=== PATIENT | female | born 1980 | race Hispanic/Latino ===

== ENCOUNTER 2023-10-11 16:21 | Emergency (ER) | payer OTHER ==
[~2023-10-11] VITALS: Ht 149.9 cm; Wt 49.9 kg
[2023-10-11 17:00] VITALS: BP 151/102; PULSE 84; RESP 20
[2023-10-11] MEDS ORDERED: IBUP-2070 PO (19:08)
[2023-10-11] MEDS ORDERED: M-SA237L TP (19:08)
[2023-10-11] MEDS ORDERED: KETOROLAC 30MG VIAL (30MG/ML) IM ONE (19:30)
== END 2023-10-11 19:44 | disposition home or self-care (01) ==
LOC: EDH 16:21
DX: M25.532 Pain in left wrist (principal); M25.562 Pain in left knee; W18.39XA Other fall on same level, initial encounter; Y93.89 Activity, other specified; Y92.89 Other specified places as the place of occurrence of the external cause; Y99.8 Other external cause status
CPT/HCPCS: 99284; 73562; 73110; 96372; J1885